=== PATIENT | female | born 1995 | race Caucasian/White ===

== ENCOUNTER 2019-10-22 12:12 | Emergency (ER) | payer OTHER ==
[2019-10-22 13:07] VITALS: BP 155/101
--- NOTE | 2019-10-22 13:34 | UC ---
Abdominal Pain Female HPI - HPI Summary HPI Summary: 2 DAYS OF INTERMITTENT ABDOMINAL PAIN EITHER IN HER EPIGASTRIC REGION OR IN THE LOWER ABDOMEN BUT NOT BOTH AT THE SAME TIME. SEEMS TO BE ASSOCIATED WITH EATING. SHE DOES HAVE NAUSEA BUT DENIES ANY VOMITING OR DIARRHEA. NO URINARY SYMPTOMS. IS NOT CONCERNED ABOUT STD OR . NO FEVER. - History of Current Complaint Chief Complaint: UCAbdominalPain Stated Complaint: ABDOMINAL PAIN Time Seen by Provider: 10/22/19 13:00 Hx Obtained From: Patient Hx Last Menstrual Period: 10/01/19 Onset/Duration: Sudden Onset, Lasting Days, Still Present Timing: Intermittent Episodes Lasting: Severity Initially: Moderate Severity Currently: Moderate Pain Intensity: 4 Pain Scale Used: 0-10 Numeric Radiates: No Character: Sharp Aggravating Factor(s): Food Alleviating Factor(s): Nothing Associated Signs and Symptoms: Positive: Back Pain, Decreased Appetite, Nausea. Negative: Diaphoresis, Fever, Urinary Symptoms, Vomiting, Diarrhea Allergies/Adverse Reactions: Allergies Allergy/AdvReac Type Severity Reaction Status Date / Time No Known Allergies Allergy Verified 10/22/19 12:51 Home Medications: Home Medications NK [No Home Medications Reported] 10/22/19 [History Confirmed 10/22/19] PMH/Surg Hx/FS Hx/Imm Hx Previously Healthy: Yes - Surgical History Surgical History: None - Family History Known Family History: Positive: Non-Contributory - Social History Alcohol Use: Occasionally Substance Use Type: None Smoking Status (MU): Never Smoked Tobacco Review of Systems All Other Systems Reviewed And Are Negative: Yes Constitutional: Positive: Negative Respiratory: Positive: Negative Cardiovascular: Positive: Negative Gastrointestinal: Positive: Abdominal Pain, Nausea. Negative: Vomiting, Diarrhea Genitourinary: Positive: Negative Physical Exam Triage Information Reviewed: Yes Appearance: Well-Appearing, No Pain Distress, Well-Nourished Vital Signs: Initial Vital Signs Temp 99.1 F 10/22/19 12:53 Pulse 79 10/22/19 12:53 Resp 16 10/22/19 12:53 BP 155/101 10/22/19 12:53 Pulse Ox 100 10/22/19 12:53 Laboratory Tests 10/22/19 13:33 POC Urine Color Yellow POC Urine Clarity Clear POC Urine pH 7.5 POC Ur Specif Clarinda 1.020 POC Urine Protein Negative POC Ur Glucose (UA) Negative POC Urine Ketones Negative POC Urine Blood Trace-intact POC Urine Nitrite Negative POC Urine Bilirubin Negative POC Urine Urobilinogen 0.2 POC U Leukocyte Esteras Negative Vital Signs Reviewed: Yes Eyes: Positive: Conjunctiva Clear ENT: Positive: Hearing grossly normal Neck: Positive: Supple Respiratory Exam: Normal Cardiovascular Exam: Normal Abdomen Description: Positive: Soft, Other: - TTP EPIPGASTRIC AREA AND MILDLY OVER LOWER ABDOMEN. Negative: CVA Tenderness (R), CVA Tenderness (L), Distended , Guarding Bowel Sounds: Positive: Present Musculoskeletal: Positive: No Edema Neurological: Positive: Alert Psychological: Positive: Age Appropriate Behavior Skin: Negative: Rashes Abd Pain Female Course/Dx - Course Course Of Treatment: PATIENT WITH MICROSCOPIC HEMATURIA ON URINE TEST TODAY. NO INDICATION OF UTI. OFFERED CT SCAN TO FURTHER EVALUATE HOWEVER SHE DECLINES AT PRESENT. RECOMMENDED SHE FOLLOW UP WITH HER PCP IN 2-3 WEEKS FOR REPEAT URINE TEST TO ENSURE THE BLOOD HAS CLEARED. CBC, CMP AND LIPASE DRAWN TODAY. PATIENT ADVISED TO FOLLOW A BLAND DIET AND TO GO TO THE ER WITHOUT FAIL IF HER SYMPTOMS WORSEN. - Differential Dx/Diagnosis Provider Diagnosis: Epigastric abdominal pain Discharge ED - Sign-Out/Discharge Documenting (check all that apply): Patient Departure All imaging exams completed and their final reports reviewed: No Studies - Discharge Plan Condition: Stable Disposition: HOME Patient Education Materials: Abdominal Pain (ED) Referrals: Britni Arana [Primary Care Provider] - 2 Weeks Additional Instructions: UNCLEAR ETIOLOGY OF YOUR SYMPTOMS TODAY. RECOMMEND FOLLOWING E.G., BLAND DIET. AVOID CAFFEINE, SPICY FOOD, GREASY FOOD OR ANYTHING THAT MIGHT TRIGGER YOUR SYMPTOMS. I RECOMMEND YOU KEEP A SYMPTOM DIARY TO SEE IF A TRIGGER CAN BE IDENTIFIED. STAY WELL HYDRATED AND FOLLOW-UP WITH YOUR PCP IN 2 OR 3 WEEKS FOR A REPEAT URINE TEST. YOU HAD A TRACE AMOUNT OF BLOOD IN YOUR URINE TODAY AND YOU NEED TO ENSURE THAT THIS CLEARS. BLOOD COUNT, METABOLIC PANEL AND PANCREATIC ENZYMES TESTED TODAY. WE WILL CALL YOU WITH ANY ABNORMAL RESULTS. GO TO THE ER WITHOUT FAIL IF YOU DEVELOP WORSENING PAIN, NAUSEA/VOMITING, FEVER , BACK PAIN OR ANY OTHER CONCERNING SYMPTOMS. - Billing Disposition and Condition Condition: STABLE Disposition: Home
[2019-10-22 21:21] LABS: ABS Basophils 0.1 10^3/ul (0-0.2); ABS Eosinophils 0.1 10^3/ul (0-0.6); ABS Lymphocytes 2.3 10^3/ul (1.0-4.8); ABS Monocytes 0.8 10^3/ul (0-0.8); Eosinophil % 1.4 %; Hematocrit 42 % (35-47); Hemoglobin 13.9 g/dL (12.0-16.0); Lymphocyte % 32.1 %; Mean Corpuscular HGB Conc 33 g/dL (31-36); Mean Corpuscular Hemoglobin 29 pg (27-31); Mean Corpuscular Volume 87 fL (80-97); Platelet Count 321 10^3/uL (150-450); Red Blood Count 4.83 10^6 /uL (3.70-4.87); Red Cell Distribution Width 14 % (10-15); White Blood Count 7.3 10^3/uL (3.5-10.8)
[2019-10-22 21:33] LABS: Albumin 4.5 g/dL (3.2-5.2); Calcium 9.8 mg/dL (8.6-10.3); Potassium 4.5 mmol/L (3.5-5.0); Total Bilirubin 0.3 mg/dL (0.2-1.0)
[2019-10-22 21:39] LABS: Albumin/Globulin Ratio 1.7 (1-3); BUN/Creatinine Ratio 11.5 (8-20); EGFR African American 148.4 (>60); EGFR Non-African American 122.6 (>60); Globulin 2.6 g/dL (2-4); Total Protein 7.1 g/dL (6.4-8.9)
--- NOTE | 2019-10-23 07:12 | UC ---
- Progress Note Progress Note: CBC with diff CMP reviewed and non concerning no change candace 10/23 Course/Dx - Diagnoses Provider Diagnoses: Epigastric abdominal pain Discharge ED - Sign-Out/Discharge Documenting (check all that apply): Post-Discharge Follow Up All imaging exams completed and their final reports reviewed: No Studies - Discharge Plan Condition: Stable Disposition: HOME Patient Education Materials: Abdominal Pain (ED) Forms: *Gen. Provider Communication Referrals: Britni Arana [Primary Care Provider] - 2 Weeks Additional Instructions: UNCLEAR ETIOLOGY OF YOUR SYMPTOMS TODAY. RECOMMEND FOLLOWING E.G., BLAND DIET. AVOID CAFFEINE, SPICY FOOD, GREASY FOOD OR ANYTHING THAT MIGHT TRIGGER YOUR SYMPTOMS. I RECOMMEND YOU KEEP A SYMPTOM DIARY TO SEE IF A TRIGGER CAN BE IDENTIFIED. STAY WELL HYDRATED AND FOLLOW-UP WITH YOUR PCP IN 2 OR 3 WEEKS FOR A REPEAT URINE TEST. YOU HAD A TRACE AMOUNT OF BLOOD IN YOUR URINE TODAY AND YOU NEED TO ENSURE THAT THIS CLEARS. BLOOD COUNT, METABOLIC PANEL AND PANCREATIC ENZYMES TESTED TODAY. WE WILL CALL YOU WITH ANY ABNORMAL RESULTS. GO TO THE ER WITHOUT FAIL IF YOU DEVELOP WORSENING PAIN, NAUSEA/VOMITING, FEVER , BACK PAIN OR ANY OTHER CONCERNING SYMPTOMS. - Billing Disposition and Condition Condition: STABLE Disposition: Home
== END 2019-10-22 13:48 | disposition home or self-care (01) ==
LOC: UCEAST 12:12
DX: R10.13 Epigastric pain (principal); R31.29 Other microscopic hematuria
CPT/HCPCS: 36415; 80053; 81003; 83690; 85025; 99201; G0463

== ENCOUNTER 2022-03-10 17:55 | Inpatient (IN) ==
[~2022-03-10 17:55] MED LIST: Dinoprostone 10 MG VAG.SUPP VAGINAL ONE
[2022-03-10 20:44] LABS: ABS Basophils 0.1 10^3/ul (0-0.2); ABS Eosinophils 0.2 10^3/ul (0-0.6); ABS Lymphocytes 2.5 10^3/ul (1.0-4.8); ABS Monocytes 1.2 10^3/ul (0-0.8); ABS Neutrophils 7.6 10^3/ul (1.5-7.7); Eosinophil % 1.3 %; Hematocrit 37 % (35-47); Hemoglobin 12.2 g/dL (12.0-16.0); Lymphocyte % 21.6 %; Mean Corpuscular HGB Conc 33 g/dL (31-36); Mean Corpuscular Hemoglobin 30 pg (27-31); Mean Corpuscular Volume 90 fL (80-97); Mean Platelet Volume 10.7 fL (7.4-10.4); Nucleated Red Blood Cells % 0.1; Platelet Count 191 10^3/uL (150-450); Red Blood Count 4.04 10^6 /uL (3.70-4.87); Red Cell Distribution Width 15 % (10-15); White Blood Count 11.4 10^3/uL (3.5-10.8)
[2022-03-10 20:46] LABS: Urine Appearance Turbid; Urine Bilirubin Negative (Negative); Urine Blood Negative (Negative); Urine Color Yellow; Urine Glucose Negative (Negative); Urine Ketones Negative (Negative); Urine Nitrite Negative (Negative); Urine Protein 2+(100 mg/dL) (Negative); Urine Specific Gravity 1.023 (1.002-1.030); Urine Urobilinogen Negative (Negative)
[2022-03-10 20:50] LABS: Urine Bacteria 3+ (Absent); Urine Red Blood Cell 3+(>10/hpf) (Absent); Urine Squamous Epithelial Cell Present (Absent); Urine White Blood Cell 3+(>20/hpf) (Absent); Urine Yeast Present (Absent)
[2022-03-10 21:11] LABS: Albumin 3.2 g/dL (3.2-5.2); Albumin/Globulin Ratio 1.2 (1-3); Calcium 9.3 mg/dL (8.6-10.3); Globulin 2.7 g/dL (2-4); Total Bilirubin 0.2 mg/dL (0.2-1.0); Total Protein 5.9 g/dL (6.4-8.9); Uric Acid 8.2 mg/dL (2.3-6.6); eGFR CKD-EPI 125.7 (>60)
[2022-03-11] MEDS ORDERED: Morphine 10 MG/ML VIAL (1 ml) IV ONE ×2 (02:00→20:24)
[2022-03-11] MEDS ORDERED: Promethazine INJ(RESTRICTED) 25 MG/ML 1 ml VIAL IV ONE (02:00)
[2022-03-11 09:43] LABS: ABS Basophils 0.1 10^3/ul (0-0.2); ABS Eosinophils 0.2 10^3/ul (0-0.6); ABS Lymphocytes 2.3 10^3/ul (1.0-4.8); ABS Monocytes 1.5 10^3/ul (0-0.8); ABS Neutrophils 9.1 10^3/ul (1.5-7.7); Eosinophil % 1.3 %; Hematocrit 39 % (35-47); Lymphocyte % 17.6 %; Mean Corpuscular HGB Conc 33 g/dL (31-36); Mean Corpuscular Hemoglobin 30 pg (27-31); Mean Corpuscular Volume 91 fL (80-97); Mean Platelet Volume 10.4 fL (7.4-10.4); Nucleated Red Blood Cells % 0.1; Platelet Count 200 10^3/uL (150-450); Red Blood Count 4.26 10^6 /uL (3.70-4.87); Red Cell Distribution Width 15 % (10-15); White Blood Count 13.2 10^3/uL (3.5-10.8)
[2022-03-11 10:11] LABS: Urine Benzodiazepine Screen None Detected (None Detect); Urine Cannabinoids Screen None Detected (None Detect); Urine Opiates Screen Presumptive Positive (None Detect)
[2022-03-11 10:18] LABS: Albumin 3.4 g/dL (3.2-5.2); Albumin/Globulin Ratio 1.2 (1-3); Calcium 9.8 mg/dL (8.6-10.3); Globulin 2.8 g/dL (2-4); Potassium 4.2 mmol/L (3.5-5.0); Total Bilirubin 0.3 mg/dL (0.2-1.0); Total Protein 6.2 g/dL (6.4-8.9); eGFR CKD-EPI 115.1 (>60)
[2022-03-11] MEDS ORDERED: Dinoprostone 10 MG VAG.SUPP VAGINAL ONE (19:32)
[2022-03-11] MEDS ORDERED: Promethazine INJ(RESTRICTED) 25 MG/ML 1 ml VIAL IV PRN (20:25)
[2022-03-12 11:28] LABS: ABS Basophils 0.1 10^3/ul (0-0.2); ABS Eosinophils 0.1 10^3/ul (0-0.6); ABS Lymphocytes 1.8 10^3/ul (1.0-4.8); ABS Monocytes 1.2 10^3/ul (0-0.8); ABS Neutrophils 8.5 10^3/ul (1.5-7.7); Hematocrit 36 % (35-47); Hemoglobin 12.2 g/dL (12.0-16.0); Lymphocyte % 15.7 %; Mean Corpuscular HGB Conc 34 g/dL (31-36); Mean Corpuscular Hemoglobin 30 pg (27-31); Mean Corpuscular Volume 90 fL (80-97); Mean Platelet Volume 10.2 fL (7.4-10.4); Nucleated Red Blood Cells % 0.1; Platelet Count 182 10^3/uL (150-450); Red Blood Count 4.05 10^6 /uL (3.70-4.87); Red Cell Distribution Width 15 % (10-15); White Blood Count 11.8 10^3/uL (3.5-10.8)
[2022-03-12 12:19] LABS: Albumin 3.1 g/dL (3.2-5.2); Albumin/Globulin Ratio 1.2 (1-3); Calcium 9.4 mg/dL (8.6-10.3); Globulin 2.6 g/dL (2-4); Potassium 4.1 mmol/L (3.5-5.0); Total Bilirubin 0.3 mg/dL (0.2-1.0); Total Protein 5.7 g/dL (6.4-8.9); Uric Acid 9.2 mg/dL (2.3-6.6)
[2022-03-12] MEDS ORDERED: Penicillin G Potassium IV 5,000,000 UNITS in NS 0.9% 100 ml BAG 100 ML IVPB ONE (21:00)
[2022-03-12] MEDS ORDERED: Penicillin G Potassium IV 3,000,000 UNITS in NS 0.9% 100 ml BAG 100 ML IVPB SCH (23:59)
[2022-03-13] MEDS ORDERED: Oxytocin in LR 20 UNITS/1,000 ML BAG IVPB SCH ×2 (11:00→22:00)
[2022-03-13] MEDS ORDERED: Labetalol IV 5 MG/ML 20 ml VIAL IV PUSH ONE ×3 (16:09→19:41)
[2022-03-13] MEDS ORDERED: ceFOXitin 2 GM IVPREMIX 2 GM/50 ML BAG IVPB ONE (19:29)
[2022-03-13] MEDS ORDERED: Sodium Citrate/Citric Acid LIQ 15 ML UDC PO ONE (19:30)
[2022-03-13] MEDS ORDERED: Labetalol IV 5 MG/ML 20 ml VIAL ONE (19:37)
[2022-03-13 19:41] LABS: ABS Basophils 0.1 10^3/ul (0-0.2); ABS Eosinophils 0.1 10^3/ul (0-0.6); ABS Lymphocytes 2.2 10^3/ul (1.0-4.8); ABS Monocytes 0.9 10^3/ul (0-0.8); ABS Neutrophils 6.7 10^3/ul (1.5-7.7); Eosinophil % 1.2 %; Hematocrit 36 % (35-47); Hemoglobin 12.2 g/dL (12.0-16.0); Lymphocyte % 21.7 %; Mean Corpuscular HGB Conc 34 g/dL (31-36); Mean Corpuscular Hemoglobin 30 pg (27-31); Mean Corpuscular Volume 90 fL (80-97); Mean Platelet Volume 10.3 fL (7.4-10.4); Platelet Count 176 10^3/uL (150-450); Red Blood Count 4.02 10^6 /uL (3.70-4.87); Red Cell Distribution Width 16 % (10-15); White Blood Count 9.9 10^3/uL (3.5-10.8)
[2022-03-13] MEDS ORDERED: Morphine PF AMP (0.5MG/ML) 5 MG/10 ML AMP ONE (20:24)
[2022-03-13 20:34] LABS: Albumin/Globulin Ratio 1.3 (1-3); Globulin 2.4 g/dL (2-4); Potassium 3.9 mmol/L (3.5-5.0); Total Bilirubin 0.2 mg/dL (0.2-1.0); Total Protein 5.4 g/dL (6.4-8.9); eGFR CKD-EPI 109.7 (>60)
[2022-03-13] MEDS ORDERED: Dexamethasone IV 4 MG/ML VIAL 1 ml VIAL ONE (20:57)
[2022-03-13] MEDS ORDERED: Ondansetron 4 mg VIAL 2 MG/ML 2 ml VIAL ONE (20:57)
[2022-03-13] MEDS ORDERED: Oxytocin 10 UNITS/ML 1 ML VIAL ONE (20:57)
[2022-03-13] MEDS ORDERED: Phenylephrine IV 10 MG/ML 1 ml VIAL ONE (21:26)
[2022-03-13] MEDS ORDERED: Witch Hazel PAD JAR TOPICAL PRN (21:36)
[2022-03-13] MEDS ORDERED: Glycerin ADULT 2.4 gm SUPP PR PRN (21:36)
[2022-03-13] MEDS ORDERED: Varicella Virus Vaccine Live 0.5 ML VIAL SUBCUT ONE (21:36)
[2022-03-13] MEDS ORDERED: Dibucaine 1% OINT 28.35 GM TUBE PR PRN (21:36)
[2022-03-13] MEDS ORDERED: Acetaminophen IV 1 GM/100ML 100 ML IV ONE (21:41)
[2022-03-13] MEDS ORDERED: fentaNYL 100 mcg/2 ml 50 MCG/ML VIAL IV PRN (21:41)
[2022-03-13] MEDS ORDERED: Prochlorperazine 5 mg/ml 2 ml VIAL (10 mg) IV PRN ×2 (21:41→21:43)
[2022-03-13] MEDS ORDERED: Naloxone 0.4 mg VIAL 0.4 mg/ml 1 ml VIAL IV PRN ×2 (21:41→21:43)
[2022-03-13] MEDS ORDERED: diPHENhydraMINE IV 50 MG/ML 1 ml VIAL (BENADRYL) IV PRN (21:43)
[2022-03-13] MEDS ORDERED: Ondansetron 4 mg VIAL 2 MG/ML 2 ml VIAL IV PRN (21:43)
[2022-03-13] MEDS ORDERED: hydrALAZINE 20 mg/ml 1 ML Vial IV IV SLOW PU ONE ×2 (21:50→22:39)
[2022-03-13] MEDS ORDERED: hydrALAZINE 20 mg/ml 1 ML Vial IV ONE (21:52)
[2022-03-13] MEDS ORDERED: Lactated Ringers 1000 ml BAG 1,000 ML IV SCH (22:00)
[2022-03-13 22:12] LABS: Urine Appearance Clear; Urine Bilirubin Negative (Negative); Urine Blood Negative (Negative); Urine Color Straw; Urine Glucose Negative (Negative); Urine Ketones Negative (Negative); Urine Nitrite Negative (Negative); Urine Protein Negative (Negative); Urine Specific Gravity 1.003 (1.002-1.030); Urine Urobilinogen Negative (Negative)
[2022-03-14 06:55] LABS: ABS Basophils 0.1 10^3/ul (0-0.2); ABS Lymphocytes 1.5 10^3/ul (1.0-4.8); ABS Monocytes 0.8 10^3/ul (0-0.8); ABS Neutrophils 12.1 10^3/ul (1.5-7.7); Hematocrit 30 % (35-47); Lymphocyte % 10.4 %; Mean Corpuscular HGB Conc 34 g/dL (31-36); Mean Corpuscular Hemoglobin 31 pg (27-31); Mean Corpuscular Volume 91 fL (80-97); Mean Platelet Volume 10.6 fL (7.4-10.4); Platelet Count 160 10^3/uL (150-450); Red Blood Count 3.26 10^6 /uL (3.70-4.87); Red Cell Distribution Width 16 % (10-15); White Blood Count 14.4 10^3/uL (3.5-10.8)
[2022-03-14] MEDS ORDERED: Magnesium Sulfate OB PREMIX 4 GM/100 ML BAG IV ONE (12:49)
[2022-03-14] MEDS ORDERED: Calcium Gluconate 1 GM/10 ML VIAL (in Pyxis) IV PUSH PRN (12:50)
[2022-03-14] MEDS ORDERED: Magnesium Sulfate OB PREMIX 40 GM/1,000 ML BAG ONE (12:53)
[2022-03-14] MEDS ORDERED: Magnesium Sulfate OB PREMIX 40 GM/1,000 ML BAG IVPB SCH (13:00)
[2022-03-16 15:28] VITALS: BP 143/90
== END 2022-03-16 18:20 | disposition home or self-care (01) | DRG 540 ==
LOC: MCHOBOUT 17:55 → MCHOB 18:52
PROVIDERS: ADMIT Midwife; ATTEND Obstetrics & Gynecology